=== PATIENT | male | born 1955 | race Hispanic/Latino ===

== ENCOUNTER → 2024-02-20 | Outpatient (CLI) | payer MEDICARE ==
[~2024-02-20] MED LIST: ATOR10 PO; HYDR25TA PO; LOSA100T59 PO; METF-444 PO
[2024-02-20 14:29] LABS: CREATININE 0.8 mg/dL (0.5-1.3)
== END | disposition home or self-care (01) ==
LOC: LAB 13:34
PROVIDERS: ATTEND Surgery
DX: R10.9 Unspecified abdominal pain (principal)
CPT/HCPCS: 36415; 82565; 84520

== ENCOUNTER → 2024-02-25 | Outpatient (CLI) | payer MEDICARE ==
[~2024-02-25] MED LIST changes: +IOHEXOL-350 75 ML VIAL IV ONE
--- NOTE | 2024-02-25 08:58 | HMCIMG ---
CT ABDOMEN/PELVIS W/CONTRAST HISTORY: Abdominal pain COMPARISON: None TECHNIQUE: Multiple sequential axial images of the abdomen and pelvis were obtained from the dome of the diaphragm through symphysis pubis. Patient was given 75 cc of Omnipaque through intravenous route. Oral contrast was given. FINDINGS: No pleural effusion is seen bilaterally. There is no evidence of parenchymal disease or pulmonary nodule of the visualized lower lungs. Degenerative changes of the thoracolumbar spine are present. The heart is not enlarged. Liver is enlarged measuring 17 cm. There is left hepatic cyst measuring 17 mm The liver, spleen, adrenal glands and pancreas are unremarkable. There is no evidence of hydronephrosis bilaterally. There is left renal pelvic stone measuring 10 mm. There is diverticulosis. No bowel obstruction is Fecal material is seen in the colon. There are normal size retroperitoneal and mesenteric lymph nodes. No ascites is seen. No CT evidence of acute appendicitis is seen. Clinical correlation is recommended. Pelvic sidewalls are symmetric bilaterally. Bladder is poorly distended with apparent wall thickening. IMPRESSION: 1. Left renal pelvic stone. No hydronephrosis is seen. No bowel obstruction is seen. CT was performed with one or more following dose reduction techniques: automated exposure control, adjustment of the mA and kv according to patient's size, or use of a iterative reconstruction technique.
== END | disposition home or self-care (01) ==
LOC: RAH 07:56
PROVIDERS: ATTEND Surgery
DX: N20.0 Calculus of kidney (principal); R10.9 Unspecified abdominal pain; Q63.2 Ectopic kidney; R16.0 Hepatomegaly, not elsewhere classified; K57.90 Diverticulosis of intestine, part unspecified, without perforation or abscess without bleeding; M47.815 Spondylosis without myelopathy or radiculopathy, thoracolumbar region
CPT/HCPCS: 74177; Q9967